=== PATIENT | male | born 1960 | race Caucasian/White ===

== ENCOUNTER 2021-08-19 10:40 | Inpatient (IN) | payer OTHER ==
[~2021-08-19] VITALS: Ht 182.9 cm; Wt 122.5 kg
[2021-08-19 11:39] LABS: Hematocrit 49.1 % (37.0-53.0); Hemoglobin 17.7 g/dL (13.5-17.5); Mean Corpuscular HGB 31.9 pg (26.0-34.0); Mean Corpuscular Volume 89 fL (80-100); Mean Platelet Volume 9.8 fL (9.1-12.4); Platelet Count 230 K/mm3 (150-400); RDW Coefficient Variation 13.2 % (11.7-14.2); RDW Standard Deviation 42.8 fL (35.1-46.3); Red Blood Cell Count 5.55 M/mm3 (4.30-5.90); White Blood Cell Count 16.25 K/mm3 (4.00-11.30)
[2021-08-19 12:38] LABS: BAND PERCENT MAN 13 % (0-8); BASOPHILS PERCENT MAN 0 % (0-2); EOSINOPHILS PERCENT MAN 0 % (0-6); LYMPHOCYTES ABSOLUTE MAN 0.81 K/mm3 (0.84-5.20); LYMPHOCYTES PERCENT MAN 5 % (21-46); MONOCYTES ABSOLUTE MAN 0.48 K/mm3 (0.16-1.47); MONOCYTES PERCENT MAN 3 % (4-13); NEUTROPHILS ABSOLUTE MAN 14.95 K/mm3 (1.96-9.15); SEG NEUTROPHILS PERCENT MAN 79 % (41-73); TOTAL CELLS COUNTED 100
[2021-08-19 12:39] LABS: Albumin, Blood 2.1 g/dL (3.4-5.0); Albumin/Globulin Ratio 0.3 (0.8-1.8); Bilirubin, Total 1.4 mg/dL (0.1-1.0); Bun/Creatinine Ratio 20.2 (12.0-20.0); Calcium, Blood 9.5 mg/dL (8.5-10.1); Creatinine, Blood 1.29 mg/dL (0.60-1.20); Globulin, Blood 6.1 g/dL (2.2-4.0); Total Protein, Blood 8.2 g/dL (6.4-8.2)
--- NOTE | 2021-08-19 19:36 | NUR ---
ADMITTED 61 YR OLD MALE WITH DX OF BILAT PNEUMONIA. ALERT AND OROENTE X 4. ORIENTE TO USE OF CALL LIGHT. CALL LIGHT IN REACH
[2021-08-20 05:24] LABS: BASOPHILS ABSOLUTE AUTO 0.02 K/mm3 (0.00-0.23); BASOPHILS PERCENT AUTO 0 % (0-2); Hematocrit 43.7 % (37.0-53.0); Hemoglobin 15.8 g/dL (13.5-17.5); LYMPHOCYTES ABSOLUTE AUTO 0.41 K/mm3 (0.84-5.20); LYMPHOCYTES PERCENT AUTO 3 % (21-46); MONOCYTES ABSOLUTE AUTO 0.77 K/mm3 (0.16-1.47); MONOCYTES PERCENT AUTO 6 % (4-13); Mean Corpuscular HGB 31.7 pg (26.0-34.0); Mean Corpuscular HGB Conc 36.2 g/dL (31.5-36.5); Mean Corpuscular Volume 88 fL (80-100); Mean Platelet Volume 9.4 fL (9.1-12.4); Platelet Count 217 K/mm3 (150-400); RDW Coefficient Variation 13.2 % (11.7-14.2); RDW Standard Deviation 42.2 fL (35.1-46.3); Red Blood Cell Count 4.98 M/mm3 (4.30-5.90); White Blood Cell Count 13.77 K/mm3 (4.00-11.30)
--- NOTE | 2021-08-20 05:25 | NUR ---
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 ALERT AND ORIENTED X 4. 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 ACCU CHECKS ORDERED Q 6 HRS. PT IN MID 170'S, REFUSED INSULIN, VOICED HE CONTROLS HIS BLOOD SUGARS WITH DIET, ETC. SLEEPING AT INTERVALS DURING THE SHIFT, RECEIVED PO MELATONIN ORDERED, LUNG SOUNDS DIMINISHED IN THE BASES - BILAT. IVF OF NS AT 50 ML/HR. CALL LIGHT IN REACH
[2021-08-20 05:32] LABS: EOSINOPHILS PERCENT AUTO 0 % (0-6); IMMATURE GRAN ABSOLUTE AUTO 0.04 K/mm3 (0.00-0.10); IMMATURE GRAN PERCENT AUTO 0 % (0-1); NEUTROPHILS ABSOLUTE AUTO 12.53 K/mm3 (1.96-9.15); NEUTROPHILS PERCENT AUTO 91 % (41-73)
[2021-08-20 05:55] LABS: Alanine Aminotransfer (ALT/SGP 33 U/L (12-78); Albumin, Blood 2.2 g/dL (3.4-5.0); Albumin/Globulin Ratio 0.5 (0.8-1.8); Alk Phos 128 U/L (50-136); Anion Gap 9 mmol/L (6-16); Aspartate Aminotrans (AST/SGOT 21 U/L (12-37); Bilirubin, Total 1.3 mg/dL (0.1-1.0); Blood Urea Nitrogen 27 mg/dL (8-24); Bun/Creatinine Ratio 22.9 (12.0-20.0); CO2, Blood 22 mmol/L (21-32); Chloride, Blood 96 mmol/L (98-108); Creatinine, Blood 1.18 mg/dL (0.60-1.20); Globulin, Blood 4.8 g/dL (2.2-4.0); Glomerular Filtration Rate >60 (60-); Glucose, Blood 183 mg/dL (70-99); Potassium, Blood 3.5 mmol/L (3.5-5.5); Sodium, Blood 127 mmol/L (136-145)
[2021-08-20 16:31] LABS: Anion Gap 10 mmol/L (6-16); Blood Urea Nitrogen 23 mg/dL (8-24); CO2, Blood 23 mmol/L (21-32); Calcium, Blood 9.2 mg/dL (8.5-10.1); Chloride, Blood 97 mmol/L (98-108); Creatinine, Blood 0.96 mg/dL (0.60-1.20); Glomerular Filtration Rate >60 (60-); Glucose, Blood 128 mg/dL (70-99); Potassium, Blood 3.8 mmol/L (3.5-5.5); Sodium, Blood 130 mmol/L (136-145)
--- NOTE | 2021-08-20 17:58 | NUR ---
PT AO X 4,PT C/O OF BACK PAIN,MEDICATED PER EMAR.PT SKIN INTACT.PT ON ROOM AIR WITH CONTINOUS PULSE OXYMETRY SATTING IN THE 90S,PT DENIES CHEST PAIN,N/V,SOB.PT AT BESIDE TALKING TO PT.PT HAD A SHOWER THIS PM.PT STATED HAVE REALLY BAD PTSD AND WANT TO CALL OUT HIS NAME BEFORE COME NEAR.PT HAVE NS RUNNING.PT IN BED,BED IN LOW POSITION,CALL LIGHT IN REACH WILL CONTINUE TO MONITOR.
--- NOTE | 2021-08-21 05:13 | NUR ---
PT IN BED AAO. HE DENIES ANY DISCOMFORT. VSS. LUNGS WITH RHONCHI. DENIES SOB. ON CONT PULSE OX SAT 92-94% ON RA. CALL LIGHT WITHIN REACH. SAFETY PRECAUTIONS MAINTAINED.
[2021-08-21 05:18] LABS: BASOPHILS ABSOLUTE AUTO 0.01 K/mm3 (0.00-0.23); BASOPHILS PERCENT AUTO 0 % (0-2); EOSINOPHILS ABSOLUTE AUTO 0.03 K/mm3 (0.00-0.68); EOSINOPHILS PERCENT AUTO 0 % (0-6); Hematocrit 39.4 % (37.0-53.0); Hemoglobin 14.3 g/dL (13.5-17.5); IMMATURE GRAN ABSOLUTE AUTO 0.04 K/mm3 (0.00-0.10); IMMATURE GRAN PERCENT AUTO 1 % (0-1); LYMPHOCYTES ABSOLUTE AUTO 0.78 K/mm3 (0.84-5.20); LYMPHOCYTES PERCENT AUTO 10 % (21-46); MONOCYTES ABSOLUTE AUTO 0.81 K/mm3 (0.16-1.47); MONOCYTES PERCENT AUTO 11 % (4-13); Mean Corpuscular HGB Conc 36.3 g/dL (31.5-36.5); Mean Corpuscular Volume 88 fL (80-100); Mean Platelet Volume 9.3 fL (9.1-12.4); NEUTROPHILS ABSOLUTE AUTO 5.94 K/mm3 (1.96-9.15); NEUTROPHILS PERCENT AUTO 78 % (41-73); Platelet Count 215 K/mm3 (150-400); RDW Coefficient Variation 13.2 % (11.7-14.2); RDW Standard Deviation 42.5 fL (35.1-46.3); Red Blood Cell Count 4.47 M/mm3 (4.30-5.90); White Blood Cell Count 7.61 K/mm3 (4.00-11.30)
[2021-08-21 05:42] LABS: Anion Gap 7 mmol/L (6-16); Blood Urea Nitrogen 22 mg/dL (8-24); CO2, Blood 25 mmol/L (21-32); Chloride, Blood 100 mmol/L (98-108); Glomerular Filtration Rate >60 (60-); Glucose, Blood 158 mg/dL (70-99); Phosphorus, Blood 2.6 mg/dL (2.5-4.9); Potassium, Blood 3.6 mmol/L (3.5-5.5); Sodium, Blood 132 mmol/L (136-145)
[2021-08-21] MEDS ORDERED: AMLO5 PO (11:14)
[2021-08-21] MEDS ORDERED: AZIT250 PO (11:15)
[2021-08-21] MEDS ORDERED: AMOCLA875 PO (11:15)
--- NOTE | 2021-08-21 17:44 | NUR ---
PT DC'D WITH INSTRUCTIONS. RX TO [facility]. WHEELCHAIR OUT TO PRIVATE CAR HOME WITH . BELONGINGS SENT.
== END 2021-08-21 13:41 | disposition home or self-care (01) | DRG 871 ==
LOC: ER 10:40 → MEDS 17:13
PROVIDERS: Family Medicine; Physician Assistant; Student in an Organized Health Care Education/Training Program; ADMIT Hospitalist
DX: A41.9 Sepsis, unspecified organism (principal); J18.9 Pneumonia, unspecified organism; E87.1 Hypo-osmolality and hyponatremia; N17.9 Acute kidney failure, unspecified; E87.2 Acidosis; E66.9 Obesity, unspecified; Z68.36 Body mass index [BMI] 36.0-36.9, adult; R65.20 Severe sepsis without septic shock; Z20.822 Contact with and (suspected) exposure to COVID-19; E11.65 Type 2 diabetes mellitus with hyperglycemia; I10 Essential (primary) hypertension; F17.210 Nicotine dependence, cigarettes, uncomplicated; Z98.890 Other specified postprocedural states
CPT/HCPCS: 36415; 71046; 80048; 80053; 80069; 82947; 83605; 85025; 87040; 93005; 93010; 94762; 96365; 96367; 96375; 99285-25; A9270; J0456; J0696; J1885; J7030; J7050

== ENCOUNTER 2024-10-22 17:33 | Inpatient (IN) | payer OTHER ==
[~2024-10-22] VITALS: Ht 182.9 cm; Wt 136.8 kg
[~2024-10-22 17:33] MED LIST: AMLO5 PO; AMOCLA875 PO; AZIT250 PO
[2024-10-22 18:40] LABS: BASOPHILS ABSOLUTE AUTO 0.02 K/mm3 (0.00-0.23); BASOPHILS PERCENT AUTO 0 % (0-2); EOSINOPHILS PERCENT AUTO 0 % (0-6); Hematocrit 45.3 % (37.0-53.0); Hemoglobin 15.8 g/dL (13.5-17.5); IMMATURE GRAN ABSOLUTE AUTO 0.09 K/mm3 (0.00-0.10); IMMATURE GRAN PERCENT AUTO 1 % (0-1); LYMPHOCYTES ABSOLUTE AUTO 1.14 K/mm3 (0.84-5.20); LYMPHOCYTES PERCENT AUTO 6 % (21-46); MONOCYTES ABSOLUTE AUTO 1.21 K/mm3 (0.16-1.47); MONOCYTES PERCENT AUTO 6 % (4-13); Mean Corpuscular HGB 29.9 pg (26.0-34.0); Mean Corpuscular HGB Conc 34.9 g/dL (31.5-36.5); Mean Corpuscular Volume 86 fL (80-100); Mean Platelet Volume 9.4 fL (9.1-12.4); NEUTROPHILS ABSOLUTE AUTO 16.66 K/mm3 (1.96-9.15); NEUTROPHILS PERCENT AUTO 87 % (41-73); Platelet Count 263 K/mm3 (150-400); RDW Coefficient Variation 14.2 % (11.7-14.2); RDW Standard Deviation 44.2 fL (35.1-46.3); Red Blood Cell Count 5.29 M/mm3 (4.30-5.90); White Blood Cell Count 19.12 K/mm3 (4.00-11.30)
[2024-10-22] MEDS ORDERED: ALPRAZOLAM110 PO (18:40)
[2024-10-22] MEDS ORDERED: QUET25 PO (18:41)
[2024-10-22] MEDS ORDERED: LISI20 PO (18:42)
[2024-10-22] MEDS ORDERED: Budeprion Xl300 MG PO (18:43)
[2024-10-22] MEDS ORDERED: SERT100 PO (18:43)
[2024-10-22] MEDS ORDERED: SUMA25 PO (18:46)
[2024-10-22 19:04] LABS: Albumin, Blood 3.3 g/dL (3.4-5.0); Albumin/Globulin Ratio 0.7 (0.8-1.8); Bilirubin, Total 0.8 mg/dL (0.1-1.0); Bun/Creatinine Ratio 21.6 (12.0-20.0); Calcium, Blood 9.6 mg/dL (8.5-10.1); Creatinine, Blood 1.11 mg/dL (0.60-1.20); Globulin, Blood 4.6 g/dL (2.2-4.0); Potassium, Blood 4.4 mmol/L (3.5-5.5); Total Protein, Blood 7.9 g/dL (6.4-8.2)
[2024-10-22] MEDS ORDERED: Ketorolac Tromethamine 15mg Vial IV ONE (19:30)
[2024-10-22] MEDS ORDERED: NS 1,000 ML IV SCH (19:35)
[2024-10-22] MEDS ORDERED: Acetaminophen 500 MG Tab PO ONE (19:35)
[2024-10-22 20:15] LABS: Influenza A, PCR NEGATIVE (NEGATIVE); Influenza B, PCR NEGATIVE (NEGATIVE); Resp Syncytial Virus, PCR NEGATIVE (NEGATIVE); SARS-Cov-2 (COVID-19) PCR, MMC NEGATIVE (NEGATIVE)
[2024-10-22] MEDS ORDERED: CefTRIAXone Sodium 1,000 MG in NS 100 ML IV ONE (20:35)
[2024-10-22] MEDS ORDERED: Azithromycin 500 MG in NS 250 ML IV ONE (20:35)
[2024-10-22] MEDS ORDERED: Ondansetron HCl 2 MG / ML 2ML Vial IV PRN (21:15)
[2024-10-22] MEDS ORDERED: Lactated Ringer's 1,000 ML IV SCH (21:15)
[2024-10-22] MEDS ORDERED: FLU VACC TS2024-25(6MOS UP)/PF 45 MCG/0.5 ML SYRINGE IM ONE (21:15)
[2024-10-22] MEDS ORDERED: Ipratropium/Albuterol SulF 2.5-0.5MG/3 ML Amp INH SCH (21:20)
[2024-10-22] MEDS ORDERED: ALPRAZolam 0.5 MG Tab PO PRN (21:20)
[2024-10-22] MEDS ORDERED: Albuterol 2.5 MG/3 ML VIAL INH PRN (21:25)
[2024-10-22] MEDS ORDERED: PredniSONE 20 MG Tab PO SCH (22:00)
[2024-10-22 23:10] VITALS: BP 104/63
[2024-10-22] MEDS ORDERED: Ketorolac Tromethamine 15mg Vial IV PRN (23:20)
--- NOTE | 2024-10-22 23:20 | NUR ---
NEW T-ORDER RECEIVED FROM ON-CALL HOSPITALIST FLUME TENDERJAZMYNE: TORADOL IV 15MG Q6HRS PRN. (WILL CALL BACK IF TYLENOL IS NEEDED, NOT AN ACTIVE ORDER DURING ADMISSION TO MEDICAL FLOOR.) NO OTHER NEW ACTIVE ORDERS AT THIS TIME. ENTERED TO [employer], SEE EMAR.
[2024-10-22] MEDS ORDERED: NS 250 ML IV PRN (23:25)
[2024-10-22] MEDS ORDERED: QUEtiapine Fumarate 25 MG Tab PO SCH (23:50)
[2024-10-23 00:25] LABS: Base Excess Venous -3.2 mmol/L; Bicarbonate Venous 22.6 mmol/L (24.0-30.0); PCO2 Venous 31.3 mmHg (38-42); pH Blood Venous 7.44 (7.34-7.37)
[2024-10-23] MEDS ORDERED: Nicotine 21 MG PATCH TOP PRN (00:25)
[2024-10-23] MEDS ORDERED: Miconazole Nitrate 2% 85 GM PWD TOP SCH (00:30)
[2024-10-23 00:43] LABS: Source, Urine Voided
--- NOTE | 2024-10-23 00:44 | NUR ---
PT ARRIVED TO THE MEDICAL FLOOR RM#[id number] @2300. PT WAS TRANSFERRED TO HOSPITAL BED FROM THE [facility] BY SLIDING, D/T PT FEELING WEAK, UNABLE TO ASSIST HIMSELF. RN SUSAN LUJAN COMPLETED THE ADMISSION ASSESSMENT, SKIN CHECK WITH THIS DISPATCHER MAINTENANCE. PICTURES WERE TAKEN OF PT'S PANNUS AND LEFT HAND, PLACED ON PT'S CHART. PT SIGNED THE CONSENT TO ALLOW PICTURES TAKEN. PT IS A&O X4. BASELINE FOR AMBULATING IS WITH CANE. PT IS NOW 1-PERSON ASSIST. PT C/O ALL OVER BODY PAIN, NEW ORDER FOR TORADOL IV 15MG Q6 RECEIVED FROM THE ON-CALL HOSPITALIST. PT REPORTS NOT EFFECTIVE. PT IS ON 2L O2 VIA NASAL CANNULA, SAT'S>94%. PT IS USING URINAL , SITTING ON THE SIDE OF THE BED TO URINATE. UA SENT TO LAB@ 0040. IV IS ON LEFT FOREARM, LR INFUSING ORDERED. SKIN : LEFT HAND AND PANNUS REDDENED. PICTURES IN THE CHART. BED AT THE LOWEST POSITION, CALL LIGHT WITHIN REACH. JENNA POLLARD EDUCATED THE PT R/T USE OF THE CALL LIGHT. SEROQUEL 25MG ADMINISTERED ORDERED. PER NUCLEAR SECURITY OFFICER REPORT- PT HAS HX OF PTSD. AFEBRILE UPON ARRIVING TO THE MEDICAL FLOOR. MILLER APPRENTICE NOTIFIED.
[2024-10-23 00:49] LABS: Bilirubin, Urine Neg (Neg); Blood, Urine Neg (Neg); Glucose Qualitative, Urine Neg (Neg); Ketones, Urine Neg (Neg); Leukocyte Esterase, Urine Neg (Neg); Nitrite, Urine Neg (Neg); Protein, Urine 3+ (Neg); Specific Gravity, Urine 1.015 (1.003-1.022); Urobilinogen, Urine NORM (Normal)
[2024-10-23 00:59] LABS: Appearance, Urine Clear (Clear); Color, Urine Yellow (P-Yellow); Red Blood Cells, Urine Not Seen /hpf (0-2); Squamous Epithelial Cells Few /hpf (Few); White Blood Cells, Urine 0-2 /hpf (0-5)
[2024-10-23 01:00] LABS: Bacteria Rare /hpf; Other Crystals Few /hpf
--- NOTE | 2024-10-23 01:23 | NUR ---
RECEIVED PT'S 'S INFORMATION FROM THE MEDICAL FLOOR [employer]: JILL Desai [phone]
[2024-10-23] MEDS ORDERED: STIOLTO RESPIMAT4 G2 IH (02:02)
[2024-10-23 04:11] VITALS: BP 171/82
[2024-10-23 05:14] LABS: BASOPHILS ABSOLUTE AUTO 0.05 K/mm3 (0.00-0.23); BASOPHILS PERCENT AUTO 0 % (0-2); EOSINOPHILS PERCENT AUTO 0 % (0-6); Hematocrit 41.5 % (37.0-53.0); Hemoglobin 14.5 g/dL (13.5-17.5); IMMATURE GRAN ABSOLUTE AUTO 0.15 K/mm3 (0.00-0.10); IMMATURE GRAN PERCENT AUTO 1 % (0-1); LYMPHOCYTES ABSOLUTE AUTO 0.72 K/mm3 (0.84-5.20); LYMPHOCYTES PERCENT AUTO 4 % (21-46); MONOCYTES ABSOLUTE AUTO 1.02 K/mm3 (0.16-1.47); MONOCYTES PERCENT AUTO 5 % (4-13); Mean Corpuscular HGB 30.3 pg (26.0-34.0); Mean Corpuscular HGB Conc 34.9 g/dL (31.5-36.5); Mean Corpuscular Volume 87 fL (80-100); Mean Platelet Volume 9.7 fL (9.1-12.4); NEUTROPHILS ABSOLUTE AUTO 18.32 K/mm3 (1.96-9.15); NEUTROPHILS PERCENT AUTO 91 % (41-73); Platelet Count 183 K/mm3 (150-400); RDW Coefficient Variation 14.4 % (11.7-14.2); RDW Standard Deviation 45.6 fL (35.1-46.3); Red Blood Cell Count 4.78 M/mm3 (4.30-5.90); White Blood Cell Count 20.26 K/mm3 (4.00-11.30)
[2024-10-23 06:00] LABS: Magnesium, Blood 1.6 mg/dL (1.6-2.4)
[2024-10-23 06:01] LABS: Calcium, Blood 8.8 mg/dL (8.5-10.1); Creatinine, Blood 1.16 mg/dL (0.60-1.20); Potassium, Blood 4.6 mmol/L (3.5-5.5)
[2024-10-23 07:23] VITALS: BP 143/76
[2024-10-23] MEDS ORDERED: Insulin Human Lispro 100 Units/ML 3ML Syringe SC SCH (07:30)
[2024-10-23] MEDS ORDERED: Lisinopril 20 MG Tab PO SCH (09:00)
[2024-10-23] MEDS ORDERED: buPROPion HCL 150 MG TAB.SR.12H PO SCH (09:00)
[2024-10-23] MEDS ORDERED: Sertraline HCl 100 MG Tab PO SCH (09:00)
[2024-10-23] MEDS ORDERED: Enoxaparin 40 MG/0.4 ML SYR SC SCH (09:00)
--- NOTE | 2024-10-23 13:50 | NUR ---
PATIENT ADAMENTLY REFUSING TO HAVE ANOTHER IV PLACED. PATIENT ACCIDENTALLY PULLED ORIGINAL IV OUT. PATIENT WITH SCHEDULED ANTIBIOTICS. ALSO REFUSING INSULIN, CBGs HAVE BEEN IN 200s TODAY. LEFT MESSAGE WITH MD, WILL FOLLOW UP.
--- NOTE | 2024-10-23 14:13 | NUR ---
CRITICAL RESULTS: POSITIVE BLOOD CULTURE POSITIVE BLOOD CULTURE REPORTED FROM JOVITA IN [facility] AT 1405. GRAM + COCCI GROWING. DR. GREENE NOTIFIED VIA TELEPHONE. PATIENT NOW AGREEABLE FOR NEW PIV TO BE PLACED.
[2024-10-23 15:02] VITALS: BP 138/76
[2024-10-23] MEDS ORDERED: Vancomycin HCL 1,000 MG in NS 250 ML IV ONE (15:20)
[2024-10-23] MEDS ORDERED: MetFORMIN HCl 500 mg PO SCH (17:00)
--- NOTE | 2024-10-23 18:33 | NUR ---
SHIFT SUMMARY PATIENT A/OX4, ABLE TO MAKE NEEDS KNOWN. PATIENT UP IN RECLINER ALL SHIFT, USES URINAL INDEPENDENTLY. NEW PIV PLACED VIA ULTRASOUND TO NIEVES, PATIENT VERY FEARFUL OF NEEDLES. MD INFORMED AND INSULINE AND ACHS CBG CHECKS DISCONTINUED. METFORMIN RESTARTED. PATIENT WITH 2 LPM OXUGEN USE VIA NASAL CANULA, ACITE USE, WEANED FROM 4 LPM THIS MORNING. PATIENT COMPLAINING OF BODY ACHES AND FEELING "CHILLY". AFEBRILE THIS SHIFT, BUT DIAPHORATIC AND PATIENT LETHARGIC. CRITICAL LAB RESULT OF POSITIVE BLOOD CULTURES, MD INFORMED AND IV VANCO STARTED. PATIENT ANXIOUS THIS AFTERNOON AND PRN XANAX ADMINISTERER PER JAN. WOUND TO LEFT HAND OPEN TOAIR, DRY AND NO WEAPING NOTED. LEFT ARM CELLULITIS REMAINS RED, PATIENT REPORTS NOT PAINFUL. NO OTHER CONCERNS AT THIS TIME.
[2024-10-23 20:18] VITALS: BP 101/63
[2024-10-23] MEDS ORDERED: Azithromycin 500 MG in NS 250 ML IV SCH (21:00)
[2024-10-23] MEDS ORDERED: QUEtiapine Fumarate 25 MG Tab PO SCH (21:00)
[2024-10-23] MEDS ORDERED: CefTRIAXone Sodium 1,000 MG in NS 100 ML IV SCH (21:00)
[2024-10-23 21:26] LABS: U Amphetamine Screen Not Detected; U Barbituate Screen Not Detected; U Benzodiazapine Screen DETECTED; U Buprenorphine Screen Not Detected; U Cannabinoids Screen DETECTED; U Cocaine Screen Not Detected; U Methadone Screen Not Detected; U Methamphetamine Screen Not Detected; U Opiates Screen Not Detected; U Oxycodone Screen Not Detected; U Phencyclidine Screen Not Detected
--- NOTE | 2024-10-23 21:27 | NUR ---
UA TOX SCREEN SENT TO LAB AT .
[2024-10-24 01:27] VITALS: BP 121/73
--- NOTE | 2024-10-24 04:20 | NUR ---
SHIFT SUMMARY PT UP IN CHAIR/RECLINER T/O THIS SHIFT. LEFT UPPER ARM IV ACCIDENTALLY PULLED OUT BY THE PT. CHARGE NURSE ATTEMPTED TO INSERT NEW IV ONCE, NOT SUCCESSFUL. PT HAS A PHOBIA OF NEEDLES. PRN XANAX ADMINISTERED ORDERED. PT REPORTS MILDLY EFFECTIVE FOR ANXIETY. NO IV ACCESS OF NOW. WILL REPORT TO THE DAYSHIFT RN. PRN TORADOL ADMINISTERED ONCE DURING THIS SHIFT. PT IS AFEBRILE, C/O ALL OVER BODY ACHES 06/18. TORADOL MILDLY EFFECTIVE. PT IS ON 2L O2 VIA NASAL CANNULA, SAT'S>97%. RR SHALLOW AND RAPID INTERMITTENTLY. CONTINUING PT EDUCATION R/T DEEP BREATHING, AND RELAXING TECHNIQUES. PT REQUESTED SNACK X2 DURING THE NIGHT HRS. BG CHECKS D/D'D DURING THE PREVIOUS SHIFT. NO ACUTE EVENTS DURING THIS SHIFT. PT IS ABLE TO MAKE HIS NEEDS KNOWN, AND IS SOMEWHAT COOPERATIVE WITH CARE. CALL LIGHT WITHIN REACH. PT DOES NOT LAY/SIT IN BED- RESTING IN RECLINER. CONTINUING PT EDUCATION.
[2024-10-24 05:24] LABS: BASOPHILS ABSOLUTE AUTO 0.03 K/mm3 (0.00-0.23); BASOPHILS PERCENT AUTO 0 % (0-2); EOSINOPHILS ABSOLUTE AUTO 0.01 K/mm3 (0.00-0.68); EOSINOPHILS PERCENT AUTO 0 % (0-6); Hematocrit 37.5 % (37.0-53.0); Hemoglobin 12.8 g/dL (13.5-17.5); IMMATURE GRAN ABSOLUTE AUTO 0.08 K/mm3 (0.00-0.10); IMMATURE GRAN PERCENT AUTO 1 % (0-1); LYMPHOCYTES ABSOLUTE AUTO 1.11 K/mm3 (0.84-5.20); LYMPHOCYTES PERCENT AUTO 9 % (21-46); MONOCYTES PERCENT AUTO 7 % (4-13); Mean Corpuscular HGB 30.4 pg (26.0-34.0); Mean Corpuscular HGB Conc 34.1 g/dL (31.5-36.5); Mean Corpuscular Volume 89 fL (80-100); Mean Platelet Volume 9.9 fL (9.1-12.4); NEUTROPHILS ABSOLUTE AUTO 9.85 K/mm3 (1.96-9.15); NEUTROPHILS PERCENT AUTO 83 % (41-73); Platelet Count 231 K/mm3 (150-400); RDW Coefficient Variation 14.6 % (11.7-14.2); RDW Standard Deviation 46.9 fL (35.1-46.3); Red Blood Cell Count 4.21 M/mm3 (4.30-5.90); White Blood Cell Count 11.88 K/mm3 (4.00-11.30)
[2024-10-24 06:03] LABS: Bun/Creatinine Ratio 32.3 (12.0-20.0); Calcium, Blood 9.2 mg/dL (8.5-10.1); Creatinine, Blood 1.24 mg/dL (0.60-1.20); Potassium, Blood 4.1 mmol/L (3.5-5.5)
[2024-10-24 07:37] VITALS: BP 119/66
[2024-10-24] MEDS ORDERED: Vancomycin HCL 2,500 MG in NS 500 ML IV ONE (08:25)
[2024-10-24 14:40] VITALS: BP 118/72
--- NOTE | 2024-10-24 18:41 | NUR ---
SHIFT SUMMARY- PT ALERT AND ORIENTED 1-2 PA WITH TRANSFERS D/T WEAKNESS. PT HAS BEEN UP IN THE RECLINER MOST OF THE DAY TODAY AND HAS USED THE URINAL INDEPENDENTLY. IV VANCO STARTED TODAY. NEW 20G IV PLACED IN THE WRIST THE PT SCREAMS AND THRASHES WHEN STAFF ATTEMPT TO PLACE AN IV. PT STATES HE HAS CHILDHOOD TRAUMA R/T IV PLACEMENT AND A RESULT IT CAUSES EXTREME ANXIETY. PT IS CURRENTLY SITTING UP IN A CHAIR, CALL LORA REACH NO S&S OF DISTRESS NOTED AT THIS TIME.
[2024-10-24 19:39] VITALS: BP 123/63
[2024-10-25 01:21] VITALS: BP 135/76
[2024-10-25 05:04] LABS: BASOPHILS ABSOLUTE AUTO 0.02 K/mm3 (0.00-0.23); BASOPHILS PERCENT AUTO 0 % (0-2); EOSINOPHILS ABSOLUTE AUTO 0.01 K/mm3 (0.00-0.68); EOSINOPHILS PERCENT AUTO 0 % (0-6); Hemoglobin 12.3 g/dL (13.5-17.5); IMMATURE GRAN ABSOLUTE AUTO 0.03 K/mm3 (0.00-0.10); IMMATURE GRAN PERCENT AUTO 0 % (0-1); LYMPHOCYTES ABSOLUTE AUTO 0.95 K/mm3 (0.84-5.20); LYMPHOCYTES PERCENT AUTO 11 % (21-46); MONOCYTES ABSOLUTE AUTO 0.65 K/mm3 (0.16-1.47); MONOCYTES PERCENT AUTO 8 % (4-13); Mean Corpuscular HGB 29.9 pg (26.0-34.0); Mean Corpuscular HGB Conc 33.2 g/dL (31.5-36.5); Mean Corpuscular Volume 90 fL (80-100); NEUTROPHILS ABSOLUTE AUTO 6.76 K/mm3 (1.96-9.15); NEUTROPHILS PERCENT AUTO 80 % (41-73); Platelet Count 257 K/mm3 (150-400); RDW Coefficient Variation 14.6 % (11.7-14.2); RDW Standard Deviation 48.6 fL (35.1-46.3); Red Blood Cell Count 4.11 M/mm3 (4.30-5.90); White Blood Cell Count 8.42 K/mm3 (4.00-11.30)
[2024-10-25 05:41] LABS: Bun/Creatinine Ratio 30.8 (12.0-20.0); Calcium, Blood 9.4 mg/dL (8.5-10.1); Creatinine, Blood 1.2 mg/dL (0.60-1.20); Potassium, Blood 4.5 mmol/L (3.5-5.5)
[2024-10-25 07:41] VITALS: BP 125/73
[2024-10-25] MEDS ORDERED: Azithromycin 250 MG Tab PO SCH (09:00)
[2024-10-25] MEDS ORDERED: Vancomycin HCL 2,000 MG in NS 500 ML IV SCH (10:00)
--- NOTE | 2024-10-25 10:49 | NUR ---
SPOKE TO DR GREENE THIS MORNING- ABOUT PT NOTEWORTHY EDEMA IN THE LEFT ARM. ELEVATED ON PILLOWS AT THIS TIME, LR RUNNING AT 100ML/HR INTO PIV IN THE RIGHT ARM, NO SIGN OF INFILTRATION. REDNESS ON THE PT HAND AND ELBOW SEEM TO BE MORE PRONOUNCED IN THE LEFT ARM. LUNG SOUNDS ARE MORE MOIST IN THE BASES WHEN COMPARED TO YESTERDAY. NEW ORDER FOR BLOOD CULTURES WAS PLACED SHORTLY AFTER. LR 100ML/HR STILL RUNNING, IV VANCO RUNNING AT THIS TIME. PT SITTING UP IN THE RECLINER AND HE STATES HE DOES NOT NEED THE BED, HE WONT BE USING IT.
[2024-10-25 15:45] VITALS: BP 133/65
--- NOTE | 2024-10-25 18:16 | NUR ---
SHIFT SUMMARY PT AO4, COOPERATIVE, ABLE TO MAKE NEEDS KNOWN. PT TOLERATING MEDICATIONS APPROPRIATELY. TRANSFERRED VIA 1 PERSON ASSIST TO SHOWER, PT IS A LITTLE UNSTEADY ON FEET. NO OTHER ACUTE EVENTS TOOK PLACE THIS SHIFT. BED IN LOWEST POSITION, CALL LIGHT WITHIN REACH.
[2024-10-25 19:45] VITALS: BP 148/64
[2024-10-26 01:34] VITALS: BP 156/72
--- NOTE | 2024-10-26 06:10 | NUR ---
SHIFT SUMMARY NO ACUTE EVENTS DURING THIS SHIFT. PT IS ON RA, O2 SAT'S>96%. PT C/O CHRONIC BACK PAIN, MEDICATED WITH PRN TORADOL IV ORDERED TWICE DURING THIS SHIFT. HEATING BAD APPLIED TO LOWER BACK. PT SITTING IN THE RECLINER T/O THIS SHIFT. PT C/O ANXIETY, MEDICATED WITH PO PRN XANAX ORDERED. CALL LIGHT WITHIN REACH. PT IS A&O X4, ABLE TO MAKE HIS NEEDS KNOWN AND COOPERATIVE WITH CARE. PT REPORTS SLOWLY STARTING TO FEEL BETTER.
[2024-10-26 07:50] VITALS: BP 139/62
[2024-10-26 09:30] LABS: Vancomycin, Trough 12.6 ug/mL (5.0-10.0)
[2024-10-26 19:28] VITALS: BP 150/75
--- NOTE | 2024-10-26 20:50 | NUR ---
SHIFT SUMMARY- PT HAS HAD NO ACUTE CHANGE T/O THE SHIFT. PLAN IS FOR DISCHARGE HOME ON ORAL ANTIBIOTICS ONCE BLOOD CULTURES RESULT. (1ST DAY WAS TODAY) 2 DAYS UNTIL INAL RESULT. DISCHARGE MED LIST WAS PLACED TODAY. PT IS SITTING UP IN THE RECLINER, NO S&S OF DISTRESS AT THE TIME OF SHIFT CHANGE. NIGHT RN WILL MEICATE FOR A LITTLE ANXIETY.
[2024-10-26] MEDS ORDERED: Amoxicillin/Clavulanate K 875 MG Tab PO SCH (21:00)
--- NOTE | 2024-10-27 03:56 | NUR ---
SHIFT SUMMARY PT IS PLEASANT, COOPERATIVE WITH CARE. PT REPORTS HIGH ANXIETY LEVEL R/T AWAITING TO D/C FROM THE HOSPITAL AND AWAITING FOR BLOOD CULTURE RESULTS. THIS RELATIONSHIP ASSOCIATE USED EMPATHY AND ACTIVE LISTENING WHEN COMMUNICATING WITH THE PT. PRN XANAX ADMINISTERED ORDERED, PT C/O NOT ABLE TO GET SLEEP. PT UP IN THE RECLINER T/O THIS SHIFT. URINAL BY THE BEDSIDE. PT DENIES A NEED FOR PAIN MEDICATION- BUT REPORTS CHRONIC BACK PAIN WHICH IS GETTING WORSE BY SITTING IN THE RECLINER AND NOT MOVING AROUND ENOUGH, PER PT REPORT.CALL LIGHT WITHIN REACH, PT ABLE TO MAKE HIS NEEDS KNOWN. O2 IS RA, SAT'S> 98%.PPT DENIES SOB.
[2024-10-27 05:00] VITALS: BP 165/85
[2024-10-27 07:30] VITALS: BP 164/76
[2024-10-27 08:37] LABS: Hemoglobin 12.9 g/dL (13.5-17.5); Mean Corpuscular HGB 30.2 pg (26.0-34.0); Mean Corpuscular HGB Conc 33.9 g/dL (31.5-36.5); Mean Corpuscular Volume 89 fL (80-100); Mean Platelet Volume 9.4 fL (9.1-12.4); Platelet Count 280 K/mm3 (150-400); RDW Coefficient Variation 14.1 % (11.7-14.2); RDW Standard Deviation 45.9 fL (35.1-46.3); Red Blood Cell Count 4.27 M/mm3 (4.30-5.90); White Blood Cell Count 8.12 K/mm3 (4.00-11.30)
[2024-10-27 09:02] LABS: Bun/Creatinine Ratio 30.8 (12.0-20.0); Calcium, Blood 9.6 mg/dL (8.5-10.1); Creatinine, Blood 1.04 mg/dL (0.60-1.20); Potassium, Blood 4.8 mmol/L (3.5-5.5)
[2024-10-27] MEDS ORDERED: AMOCLA875 PO (13:17)
[2024-10-27] MEDS ORDERED: MICONAZOLE NIT130 GM TOP (13:18)
[2024-10-27] MEDS ORDERED: VISBIOME 112.51 EACH PO (13:18)
--- NOTE | 2024-10-27 19:20 | NUR ---
DISCHARGE NOTE PATIENT EDUCATED ON NEW MEDICATIONS DISCHARGE PACKET REVIEWED AND SIGNED OFF WITH NO QUESTIONS OR CONCERNS. PATIENT BELONGINGS GATHERED AND HOME MEDICATIONS RETURNED. IV REMOVED. SON PICKING UP. TAKEN DOWN VIA WHEELCHAIR BY JENNA
== END 2024-10-27 18:37 | disposition home or self-care (01) | DRG 871 ==
LOC: ER 17:33 → MEDS 22:03 → ENPENDDIS 10-27 11:18 → MEDS 10-27 18:37
PROVIDERS: Emergency Medicine; Internal Medicine; Nurse Practitioner Acute Care; ADMIT Student in an Organized Health Care Education/Training Program
DX: A41.9 Sepsis, unspecified organism (principal); J18.9 Pneumonia, unspecified organism; L03.114 Cellulitis of left upper limb; B96.89 Other specified bacterial agents as the cause of diseases classified elsewhere; E11.9 Type 2 diabetes mellitus without complications; F17.210 Nicotine dependence, cigarettes, uncomplicated; I10 Essential (primary) hypertension; F41.9 Anxiety disorder, unspecified; F32.A Depression, unspecified; B37.2 Candidiasis of skin and nail; E66.01 Morbid (severe) obesity due to excess calories; G44.009 Cluster headache syndrome, unspecified, not intractable; Z79.899 Other long term (current) drug therapy; Z68.39 Body mass index [BMI] 39.0-39.9, adult
CPT/HCPCS: 0241U; 36415; 71046; 73070; 80048; 80053; 80202; 81001; 82803; 82947; 83036; 83605; 83735; 84145; 85025; 85027; 87040; 87077; 87186; 93005; 93010; 94640; 94664; 94760; 96361; 96374; 97162; 97530; 99284-25; A9270; J0456; J0696; J1650; J1885; J3370; J7030; J7040; J7050; J7120; J7512